=== PATIENT | male | born 1945 | race Two or more races ===

== ENCOUNTER → 2024-07-21 | Outpatient (CLI) | payer OTHER, MEDICAID, SELFPAY ==
[2024-07-21 16:13] LABS: Basophils % (Auto) 0 % (0-2.5); Eosinophils # (Auto) 0.5 Thou/mm3 (0.0-0.5); Eosinophils % (Auto) 7 % (0-10); Hematocrit 38.2 % (41.0-53.0); Hemoglobin 13.3 g/dL (13.5-16.0); Immature Granulocytes % (Auto) 0 % (0-0); Immature Granulocytes Auto 0.01 Thou/mm3 (0.00-0.00); Lymphocytes # (Auto) 2.1 Thou/mm3 (1.0-4.8); Lymphocytes % (Auto) 30 % (10-50); Mean Corpuscular HGB Conc 34.8 g/dl (31.0-37.0); Mean Corpuscular Hemoglobin 33.7 pg (25.0-35.0); Mean Corpuscular Volume 97 fL (80-100); Monocytes # (Auto) 0.8 Thou/mm3 (0.0-0.8); Monocytes % (Auto) 11 % (0-12); Neutrophils # (Auto) 3.6 Thou/mm3 (1.8-7.7); Neutrophils % (Auto) 51 % (37-80); Nucleated Red Blood Cell % 0 /100 WBC (0); Platelet Count 257 Thou/mm3 (140-440); Red Blood Count 3.95 Miln/mm3 (4.50-5.90)
[2024-07-21 16:28] LABS: Prostate Specific Antigen < 0.10 ng/mL (0-4.00)
[2024-07-21 16:37] LABS: Alanine Aminotransferase 25 U/L (10-49); Albumin, Serum 4.3 gm/dL (3.4-4.8); Albumin/Globulin Ratio 1.6 (1.2-2.2); Alkaline Phosphatase 76 U/L (46-116); Anion Gap 6 (7-16); Aspartate Amino Transferase 24 U/L (0-34); BUN/Creatinine Ratio 19 Ratio (12-20); Bilirubin,Total 0.4 mg/dL (0.3-1.2); Blood Urea Nitrogen 23 mg/dL (9-23); Carbon Dioxide 29.5 mMol/L (20.0-31.0); Chloride 103 mMol/L (98-107); Creatinine (Component) 1.2 mg/dL (0.6-1.3); Globulin 2.7 gm/dL (2.3-3.5); Glucose 111 mg/dL (74-106); Osmolality,Calculated 280 (275-295); Sodium 138 mMol/L (136-145); eGFR > 60 See Note
== END | disposition home or self-care (01) ==
LOC: SCTO 14:47
PROVIDERS: PCP Family Medicine; Referring Provider Nurse Practitioner Family; Visit Provider Nurse Practitioner Family
DX: C61 Malignant neoplasm of prostate (principal)
CPT/HCPCS: 36415; 80053; 84153; 85025

== ENCOUNTER → 2024-07-21 | Outpatient (BNVA) | payer OTHER, MEDICAID, SELFPAY | END | disposition home or self-care (01) | PROVIDERS: PCP Family Medicine; Referring Provider Family Medicine; Visit Provider Urology | DX: C61 Malignant neoplasm of prostate (principal); N32.81 Overactive bladder; Z92.3 Personal history of irradiation; I10 Essential (primary) hypertension; Z80.42 Family history of malignant neoplasm of prostate; E66.9 Obesity, unspecified; Z68.35 Body mass index [BMI] 35.0-35.9, adult; K21.9 Gastro-esophageal reflux disease without esophagitis | CPT/HCPCS: 81003; 99212; G0463 ==

== ENCOUNTER 2024-07-23 13:44 | Outpatient (RCR) | payer OTHER, MEDICAID, SELFPAY | END 2024-08-02 23:59 | disposition home or self-care (01) | LOC: SCTC 13:44 | PROVIDERS: PCP Family Medicine; Referring Provider Family Medicine; Visit Provider Internal Medicine Hematology & Oncology | DX: Z51.11 Encounter for antineoplastic chemotherapy (principal); C61 Malignant neoplasm of prostate; C79.51 Secondary malignant neoplasm of bone; Z90.79 Acquired absence of other genital organ(s) | CPT/HCPCS: 96365; 96402; J3489; J9217 ==

== ENCOUNTER → 2024-10-06 | Outpatient (CLI) | payer MEDICARE, SELFPAY ==
[2024-10-06 09:02] LABS: Basophils % (Auto) 1 % (0-2.5); Eosinophils # (Auto) 0.4 Thou/mm3 (0.0-0.5); Eosinophils % (Auto) 6 % (0-10); Hematocrit 41.8 % (41.0-53.0); Hemoglobin 14.2 g/dL (13.5-16.0); Immature Granulocytes % (Auto) 0 % (0-0); Immature Granulocytes Auto 0.01 Thou/mm3 (0.00-0.00); Lymphocytes # (Auto) 1.5 Thou/mm3 (1.0-4.8); Lymphocytes % (Auto) 24 % (10-50); Mean Corpuscular Hemoglobin 33.6 pg (25.0-35.0); Mean Corpuscular Volume 99 fL (80-100); Monocytes # (Auto) 0.7 Thou/mm3 (0.0-0.8); Monocytes % (Auto) 11 % (0-12); Neutrophils # (Auto) 3.6 Thou/mm3 (1.8-7.7); Neutrophils % (Auto) 58 % (37-80); Nucleated Red Blood Cell % 0 /100 WBC (0); Platelet Count 282 Thou/mm3 (140-440); RDW Standard Deviation 45.8 fL (35.1-43.9); Red Blood Count 4.23 Miln/mm3 (4.50-5.90); White Blood Count 6.3 Thou/mm3 (3.8-10.6)
[2024-10-06 09:08] LABS: Alanine Aminotransferase 21 U/L (10-49); Albumin, Serum 4.1 gm/dL (3.4-4.8); Albumin/Globulin Ratio 1.4 (1.2-2.2); Alkaline Phosphatase 76 U/L (46-116); Anion Gap 9 (7-16); Aspartate Amino Transferase 22 U/L (0-34); BUN/Creatinine Ratio 24 Ratio (12-20); Bilirubin,Total 0.5 mg/dL (0.3-1.2); Blood Urea Nitrogen 26 mg/dL (9-23); Calcium 9.5 mg/dL (8.3-10.6); Calcium (Corrected) 9.5 mg/dL (8.5-10.1); Carbon Dioxide 29.5 mMol/L (20.0-31.0); Chloride 102 mMol/L (98-107); Creatinine (Component) 1.1 mg/dL (0.6-1.3); Globulin 2.9 gm/dL (2.3-3.5); Glucose 109 mg/dL (74-106); Osmolality,Calculated 285 (275-295); Potassium 4.8 mMol/L (3.4-5.1); Sodium 140 mMol/L (136-145); eGFR > 60 See Note
== END | disposition home or self-care (01) ==
LOC: SCTO 07:07
PROVIDERS: PCP Family Medicine; Referring Provider Nurse Practitioner Family; Visit Provider Nurse Practitioner Family
DX: C61 Malignant neoplasm of prostate (principal)
CPT/HCPCS: 36415; 80053; 85025

== ENCOUNTER 2024-10-09 08:45 | Outpatient (RCR) | payer MEDICARE, SELFPAY | END 2024-10-31 23:59 | disposition home or self-care (01) | LOC: SCTC 08:45 | PROVIDERS: PCP Family Medicine; Referring Provider Family Medicine; Visit Provider Internal Medicine Hematology & Oncology | DX: Z51.11 Encounter for antineoplastic chemotherapy (principal); C61 Malignant neoplasm of prostate; C79.51 Secondary malignant neoplasm of bone; Z19.1 Hormone sensitive malignancy status; Z79.818 Long term (current) use of other agents affecting estrogen receptors and estrogen levels; Z90.79 Acquired absence of other genital organ(s) | CPT/HCPCS: 96402; 99212; J9217; G0463 ==

== ENCOUNTER → 2024-11-03 | Outpatient (CLI) | payer MEDICARE, MEDICAID, SELFPAY ==
[2024-11-03 08:40] LABS: Basophils % (Auto) 1 % (0-2.5); Eosinophils # (Auto) 0.4 Thou/mm3 (0.0-0.5); Eosinophils % (Auto) 6 % (0-10); Hematocrit 40.7 % (41.0-53.0); Immature Granulocytes % (Auto) 0 % (0-0); Immature Granulocytes Auto 0.02 Thou/mm3 (0.00-0.00); Lymphocytes # (Auto) 1.3 Thou/mm3 (1.0-4.8); Lymphocytes % (Auto) 21 % (10-50); Mean Corpuscular HGB Conc 34.4 g/dl (31.0-37.0); Mean Corpuscular Hemoglobin 33.4 pg (25.0-35.0); Mean Corpuscular Volume 97 fL (80-100); Monocytes # (Auto) 0.6 Thou/mm3 (0.0-0.8); Monocytes % (Auto) 10 % (0-12); Neutrophils # (Auto) 3.9 Thou/mm3 (1.8-7.7); Neutrophils % (Auto) 63 % (37-80); Nucleated Red Blood Cell % 0 /100 WBC (0); Platelet Count 262 Thou/mm3 (140-440); Red Blood Count 4.19 Miln/mm3 (4.50-5.90); White Blood Count 6.2 Thou/mm3 (3.8-10.6)
[2024-11-03 08:52] LABS: Prostate Specific Antigen < 0.10 ng/mL (0-4.00)
[2024-11-03 09:25] LABS: Alanine Aminotransferase 21 U/L (10-49); Albumin, Serum 4.6 gm/dL (3.4-4.8); Albumin/Globulin Ratio 1.8 (1.2-2.2); Alkaline Phosphatase 79 U/L (46-116); Anion Gap 9 (7-16); Aspartate Amino Transferase 25 U/L (0-34); BUN/Creatinine Ratio 20 Ratio (12-20); Bilirubin,Total 0.5 mg/dL (0.3-1.2); Blood Urea Nitrogen 18 mg/dL (9-23); Calcium 10.1 mg/dL (8.3-10.6); Calcium (Corrected) 10.1 mg/dL (8.5-10.1); Carbon Dioxide 29.3 mMol/L (20.0-31.0); Chloride 104 mMol/L (98-107); Creatinine (Component) 0.9 mg/dL (0.6-1.3); Globulin 2.6 gm/dL (2.3-3.5); Glucose 105 mg/dL (74-106); Osmolality,Calculated 285 (275-295); Potassium 4.5 mMol/L (3.4-5.1); Sodium 142 mMol/L (136-145); Total Protein 7.2 gm/dL (5.7-8.2); eGFR > 60 See Note
== END | disposition home or self-care (01) ==
LOC: COPL 07:28
PROVIDERS: PCP Family Medicine; Referring Provider Nurse Practitioner Family; Visit Provider Nurse Practitioner Family
DX: C61 Malignant neoplasm of prostate (principal)
CPT/HCPCS: 36415; 80053; 84153; 85025

== ENCOUNTER 2024-11-06 13:27 | Outpatient (RCR) | payer MEDICARE, MEDICAID, SELFPAY | END 2024-12-01 23:59 | disposition home or self-care (01) | LOC: SCTC 13:27 | PROVIDERS: PCP Family Medicine; Referring Provider Family Medicine; Visit Provider Internal Medicine Hematology & Oncology | DX: Z51.11 Encounter for antineoplastic chemotherapy (principal); C61 Malignant neoplasm of prostate; C79.51 Secondary malignant neoplasm of bone; Z19.1 Hormone sensitive malignancy status; Z90.79 Acquired absence of other genital organ(s); Z92.3 Personal history of irradiation; Z79.818 Long term (current) use of other agents affecting estrogen receptors and estrogen levels | CPT/HCPCS: 96365; 96367; 96402; J3489; J9217 ==

== ENCOUNTER → 2024-12-04 | Outpatient (CLI) | payer MEDICARE, MEDICAID, SELFPAY ==
[2024-12-04 11:49] LABS: Basophils % (Auto) 1 % (0-2.5); Eosinophils # (Auto) 0.3 Thou/mm3 (0.0-0.5); Eosinophils % (Auto) 5 % (0-10); Hematocrit 38.3 % (41.0-53.0); Hemoglobin 13.4 g/dL (13.5-16.0); Immature Granulocytes % (Auto) 0 % (0-0); Immature Granulocytes Auto 0.01 Thou/mm3 (0.00-0.00); Lymphocytes # (Auto) 1.3 Thou/mm3 (1.0-4.8); Lymphocytes % (Auto) 24 % (10-50); Mean Corpuscular Hemoglobin 33.8 pg (25.0-35.0); Mean Corpuscular Volume 97 fL (80-100); Monocytes # (Auto) 0.7 Thou/mm3 (0.0-0.8); Monocytes % (Auto) 12 % (0-12); Neutrophils # (Auto) 3.2 Thou/mm3 (1.8-7.7); Neutrophils % (Auto) 58 % (37-80); Nucleated Red Blood Cell % 0 /100 WBC (0); Platelet Count 258 Thou/mm3 (140-440); RDW Standard Deviation 47.2 fL (35.1-43.9); Red Blood Count 3.97 Miln/mm3 (4.50-5.90); White Blood Count 5.5 Thou/mm3 (3.8-10.6)
[2024-12-04 12:00] LABS: Prostate Specific Antigen < 0.10 ng/mL (0-4.00)
[2024-12-04 12:09] LABS: Alanine Aminotransferase 19 U/L (10-49); Albumin, Serum 4.1 gm/dL (3.4-4.8); Albumin/Globulin Ratio 1.5 (1.2-2.2); Alkaline Phosphatase 79 U/L (46-116); Anion Gap 10 (7-16); Aspartate Amino Transferase 24 U/L (0-34); BUN/Creatinine Ratio 20 Ratio (12-20); Bilirubin,Total 0.4 mg/dL (0.3-1.2); Blood Urea Nitrogen 20 mg/dL (9-23); Calcium 9.8 mg/dL (8.3-10.6); Calcium (Corrected) 9.8 mg/dL (8.5-10.1); Carbon Dioxide 29.5 mMol/L (20.0-31.0); Chloride 103 mMol/L (98-107); Globulin 2.7 gm/dL (2.3-3.5); Glucose 117 mg/dL (74-106); Osmolality,Calculated 286 (275-295); Potassium 4.2 mMol/L (3.4-5.1); Sodium 142 mMol/L (136-145); Total Protein 6.8 gm/dL (5.7-8.2); eGFR > 60 See Note
== END | disposition home or self-care (01) ==
LOC: SCTO 09:57
PROVIDERS: PCP Family Medicine; Referring Provider Nurse Practitioner Family; Visit Provider Nurse Practitioner Family
DX: C61 Malignant neoplasm of prostate (principal)
CPT/HCPCS: 36415; 80053; 84153; 85025

== ENCOUNTER → 2024-12-05 | Outpatient (BNVA) | payer OTHER, MEDICAID, SELFPAY | END | disposition home or self-care (01) | PROVIDERS: PCP Family Medicine; Referring Provider Family Medicine; Visit Provider Urology | DX: C61 Malignant neoplasm of prostate (principal); N32.81 Overactive bladder; I10 Essential (primary) hypertension; Z80.42 Family history of malignant neoplasm of prostate; E66.9 Obesity, unspecified; Z68.35 Body mass index [BMI] 35.0-35.9, adult; Z92.3 Personal history of irradiation | CPT/HCPCS: 81003; 99212; G0463 ==

== ENCOUNTER 2024-12-08 08:43 | Outpatient (RCR) | payer MEDICARE, MEDICAID, SELFPAY | END 2024-12-31 23:59 | disposition home or self-care (01) | LOC: SCTC 08:43 | PROVIDERS: PCP Family Medicine; Referring Provider Family Medicine; Visit Provider Internal Medicine Hematology & Oncology | DX: Z51.11 Encounter for antineoplastic chemotherapy (principal); C61 Malignant neoplasm of prostate; C79.51 Secondary malignant neoplasm of bone; Z19.1 Hormone sensitive malignancy status; Z90.79 Acquired absence of other genital organ(s); Z79.818 Long term (current) use of other agents affecting estrogen receptors and estrogen levels | CPT/HCPCS: 96372; 96402; J9217 ==

== ENCOUNTER → 2024-12-23 | Outpatient (CLI) | payer MEDICARE, MEDICAID, SELFPAY ==
[2024-12-23 14:00] LABS: Anion Gap 7 (7-16); BUN/Creatinine Ratio 18 Ratio (12-20); Blood Urea Nitrogen 25 mg/dL (9-23); Calcium 9.4 mg/dL (8.3-10.6); Carbon Dioxide 28.3 mMol/L (20.0-31.0); Chloride 110 mMol/L (98-107); Creatinine (Component) 1.4 mg/dL (0.6-1.3); Glucose 72 mg/dL (74-106); Osmolality,Calculated 292 (275-295); Sodium 145 mMol/L (136-145); eGFR 51 See Note
== END | disposition home or self-care (01) ==
LOC: COPL 13:05
PROVIDERS: PCP Family Medicine; Referring Provider Urology; Visit Provider Urology
DX: R31.0 Gross hematuria (principal); C61 Malignant neoplasm of prostate
CPT/HCPCS: 36415; 80048

== ENCOUNTER → 2024-12-29 | Outpatient (CLI) | payer MEDICARE, MEDICAID, SELFPAY ==
[2024-12-29 12:19] LABS: Prostate Specific Antigen < 0.00 ng/mL (0-4.00)
[2024-12-29 12:20] LABS: Collection Type, Urine Clean Catch
[2024-12-29 12:20] LABS: Alanine Aminotransferase 20 U/L (10-49); Albumin, Serum 4.2 gm/dL (3.4-4.8); Albumin/Globulin Ratio 1.4 (1.2-2.2); Alkaline Phosphatase 71 U/L (46-116); Anion Gap 7 (7-16); Aspartate Amino Transferase 25 U/L (0-34); BUN/Creatinine Ratio 19 Ratio (12-20); Bilirubin,Total 0.6 mg/dL (0.3-1.2); Blood Urea Nitrogen 19 mg/dL (9-23); Calcium 9.3 mg/dL (8.3-10.6); Calcium (Corrected) 9.3 mg/dL (8.5-10.1); Carbon Dioxide 28.4 mMol/L (20.0-31.0); Chloride 104 mMol/L (98-107); Glucose 101 mg/dL (74-106); Osmolality,Calculated 279 (275-295); Potassium 3.9 mMol/L (3.4-5.1); Sodium 139 mMol/L (136-145); Total Protein 7.2 gm/dL (5.7-8.2); eGFR > 60 See Note
[2024-12-29 12:22] LABS: Basophils % (Auto) 1 % (0-2.5); Eosinophils # (Auto) 0.2 Thou/mm3 (0.0-0.5); Eosinophils % (Auto) 4 % (0-10); Hematocrit 37.5 % (41.0-53.0); Immature Granulocytes % (Auto) 0 % (0-0); Immature Granulocytes Auto 0.01 Thou/mm3 (0.00-0.00); Lymphocytes # (Auto) 1.2 Thou/mm3 (1.0-4.8); Lymphocytes % (Auto) 21 % (10-50); Mean Corpuscular HGB Conc 34.7 g/dl (31.0-37.0); Mean Corpuscular Hemoglobin 33.9 pg (25.0-35.0); Mean Corpuscular Volume 98 fL (80-100); Monocytes # (Auto) 0.5 Thou/mm3 (0.0-0.8); Monocytes % (Auto) 8 % (0-12); Neutrophils % (Auto) 66 % (37-80); Nucleated Red Blood Cell % 0 /100 WBC (0); Platelet Count 256 Thou/mm3 (140-440); RDW Standard Deviation 49.4 fL (35.1-43.9); Red Blood Count 3.83 Miln/mm3 (4.50-5.90)
[2024-12-29 14:02] LABS: Bilirubin,Urine Negative (Negative); Blood,Urine Negative (Negative); Clarity,Urine Clear (Clear/Hazy); Color,Urine Yellow (Lt Yel-Yel); Glucose, Urine Negative (Negative); Ketones,Urine Negative (Negative); Leukocyte Esterase,Urine Negative (Negative); Nitrite,Urine Negative (Negative); Protein,Urine Trace (Neg - Trace); RBC,Urine 5 /hpf (0-3); Specific Gravity,Urine 1.032 (1.001-1.035); Squamous Epithelial Cell,Urine 1 /hpf (0-5); Urobilinogen,Urine Negative mg/dL (0.0-1.0); WBC,Urine 1 /hpf (0-5)
== END | disposition home or self-care (01) ==
PROVIDERS: PCP Family Medicine; Referring Provider Nurse Practitioner Family; Visit Provider Nurse Practitioner Family
DX: C61 Malignant neoplasm of prostate (principal)
CPT/HCPCS: 36415; 80053; 81001; 84153; 85025

== ENCOUNTER → 2025-01-01 | Outpatient (CLI) | payer MEDICARE, MEDICAID, SELFPAY ==
--- NOTE | 2025-01-01 | XR_ITS ---
Examination: CT abdomen with intravenous contrast CT pelvis with intravenous contrast 2-D coronal reconstructions 2-D sagittal reconstructions Date and time of exam:January 01, 2025. 9:14 AM Comparison March 04, 2024 INDICATIONS: Diagnosis prostate carcinoma 2017, hematuria episodes 2 months CTDI: vol (mGy) 17.5 DLP: (mGycm) 1046 Technique: Multiple axial sections of the abdomen and pelvis have been obtained. 64 slice high-resolution scanner used. 3 mm axial sections have been obtained, post intravenous injection 60 cc Isovue-370 2-D sagittal, coronal reconstructions obtained. Low dose protocols were performed. One or more of the following dose reduction techniques were used; automated exposure control, adjustment of the mA and/or KV according to patient size, use of iterative reconstruction technique. Findings: No focal liver or splenic lesions No gallstones No pancreatic or adrenal mass No renal or ureteral calculi, no hydronephrosis Abdominal aortic calcification no aneurysmal dilatation 30 mm fat-containing umbilical hernia No bladder mass or bladder calculi Significant osteopenia with advanced degenerative disc disease L2-L3 IMPRESSION: No renal or ureteral calculi, no hydronephrosis No bladder mass or bladder calculi Detail in the pelvis is limited secondary to the patient's left hip arthroplasty
== END | disposition home or self-care (01) ==
LOC: CDIM 07:00
PROVIDERS: PCP Family Medicine; Referring Provider Urology; Visit Provider Urology
DX: R31.0 Gross hematuria (principal)
CPT/HCPCS: 74177; A4649; Q9967

== ENCOUNTER 2025-01-07 08:52 | Outpatient (RCR) | payer MEDICARE, MEDICAID, SELFPAY | END 2025-01-31 23:59 | disposition home or self-care (01) | LOC: SCTC 08:52 | PROVIDERS: PCP Family Medicine; Referring Provider Family Medicine; Visit Provider Nurse Practitioner Family | DX: Z51.11 Encounter for antineoplastic chemotherapy (principal); C61 Malignant neoplasm of prostate; R31.9 Hematuria, unspecified; C79.51 Secondary malignant neoplasm of bone; Z19.1 Hormone sensitive malignancy status; Z90.79 Acquired absence of other genital organ(s); Z92.3 Personal history of irradiation; R94.4 Abnormal results of kidney function studies | CPT/HCPCS: 96402; 99212; J9217; G0463 ==

== ENCOUNTER → 2025-01-16 | Outpatient (BNVA) | payer MEDICARE, MEDICAID, SELFPAY | END | disposition home or self-care (01) | PROVIDERS: PCP Family Medicine; Referring Provider Family Medicine; Visit Provider Urology | DX: N32.89 Other specified disorders of bladder (principal); N30.41 Irradiation cystitis with hematuria; C61 Malignant neoplasm of prostate; Z92.3 Personal history of irradiation; K21.9 Gastro-esophageal reflux disease without esophagitis | CPT/HCPCS: 52214; 81003; 96372; A4217; A4649; C1894; J1580; A9270 ==

== ENCOUNTER → 2025-02-03 | Outpatient (CLI) | payer MEDICARE, MEDICAID, SELFPAY ==
[2025-02-03 08:52] LABS: Basophils % (Auto) 1 % (0-2.5); Eosinophils # (Auto) 0.3 Thou/mm3 (0.0-0.5); Eosinophils % (Auto) 7 % (0-10); Hematocrit 38.9 % (41.0-53.0); Hemoglobin 13.4 g/dL (13.5-16.0); Immature Granulocytes % (Auto) 0 % (0-0); Lymphocytes % (Auto) 22 % (10-50); Mean Corpuscular HGB Conc 34.4 g/dl (31.0-37.0); Mean Corpuscular Hemoglobin 34.8 pg (25.0-35.0); Mean Corpuscular Volume 101 fL (80-100); Monocytes # (Auto) 0.5 Thou/mm3 (0.0-0.8); Monocytes % (Auto) 10 % (0-12); Neutrophils # (Auto) 2.9 Thou/mm3 (1.8-7.7); Neutrophils % (Auto) 61 % (37-80); Nucleated Red Blood Cell % 0 /100 WBC (0); Platelet Count 240 Thou/mm3 (140-440); RDW Standard Deviation 49.2 fL (35.1-43.9); Red Blood Count 3.85 Miln/mm3 (4.50-5.90); White Blood Count 4.8 Thou/mm3 (3.8-10.6)
[2025-02-03 10:22] LABS: Prostate Specific Antigen < 0.10 ng/mL (0-4.00)
[2025-02-03 11:01] LABS: Alanine Aminotransferase 20 U/L (10-49); Albumin, Serum 4.3 gm/dL (3.4-4.8); Albumin/Globulin Ratio 1.7 (1.2-2.2); Alkaline Phosphatase 74 U/L (46-116); Anion Gap 12 (7-16); Aspartate Amino Transferase 25 U/L (0-34); BUN/Creatinine Ratio 22 Ratio (12-20); Bilirubin,Total 0.4 mg/dL (0.3-1.2); Blood Urea Nitrogen 22 mg/dL (9-23); Calcium 9.2 mg/dL (8.3-10.6); Calcium (Corrected) 9.2 mg/dL (8.5-10.1); Carbon Dioxide 27.7 mMol/L (20.0-31.0); Chloride 104 mMol/L (98-107); Globulin 2.6 gm/dL (2.3-3.5); Glucose 114 mg/dL (74-106); Osmolality,Calculated 291 (275-295); Potassium 4.7 mMol/L (3.4-5.1); Sodium 144 mMol/L (136-145); Total Protein 6.9 gm/dL (5.7-8.2); eGFR > 60 See Note
== END | disposition home or self-care (01) ==
LOC: SCTO 06:48
PROVIDERS: PCP Family Medicine; Referring Provider Nurse Practitioner Family; Visit Provider Nurse Practitioner Family
DX: C61 Malignant neoplasm of prostate (principal)
CPT/HCPCS: 36415; 80053; 84153; 85025

== ENCOUNTER → 2025-02-10 | Outpatient (CLI) | payer MEDICARE, MEDICAID, SELFPAY ==
--- NOTE | 2025-02-10 09:00 | XR_ITS ---
Examination: CT chest with intravenous contrast CT abdomen with intravenous contrast CT pelvis with intravenous contrast 2-D coronal and sagittal reconstructions Time of exam: February 10, [address] abdomen pelvis January 01, 2025, CT chest December 14, 2023, nuclear medicine bone scan November 16, 2022 INDICATIONS: Diagnosis malignant neoplasm prostate 2017, hematuria 2 months CTDI: vol (mGy) : 17.2 DLP: (mGycm): 795 Technique: Multiple axial images of the chest, abdomen and pelvis with intravenous contrast, 3.0 mm slice thickness. Images obtained post intravenous injection Isovue 370 60 cc. 2-D sagittal and coronal reconstructions. Low dose protocols were performed. One or more of the following dose reduction techniques were used; automated exposure control, adjustment of the mA and/or KV according to patient size, use of iterative reconstruction technique. Findings: No thoracic aortic aneurysm dilatation or dissection Pulmonary artery opacification is poor Heavy calcification left anterior descending coronary artery. No paratracheal tracheobronchial or bronchopulmonary adenopathy 2 mm pulmonary nodule left upper lobe image 131 No pneumonia or pulmonary edema No visualized liver or splenic lesion No gallstones No pancreatic or adrenal mass No renal or ureteral calculi, no hydronephrosis Aorta calcification no aneurysmal dilatation No pericecal inflammatory change No bowel obstruction or diverticulitis Pelvis detail is obscured by left hip bipolar hemiarthroplasty Urinary bladder is contracted with marked wall thickening of the urinary bladder up to 14 mm Prostate tissue is not depicted IMPRESSION: 2 mm pulmonary nodule left upper lobe, with this study as baseline recommend 6 month follow-up CT chest without contrast Prominent thickening of the urinary bladder wall, cystitis would be included in the differential, clinical correlation advised No renal or ureteral calculi, no solid renal mass lesion
== END | disposition home or self-care (01) ==
LOC: CCTX 08:38
PROVIDERS: PCP Family Medicine; Referring Provider Nurse Practitioner Family; Visit Provider Nurse Practitioner Family
DX: C61 Malignant neoplasm of prostate (principal); R91.1 Solitary pulmonary nodule; I25.10 Atherosclerotic heart disease of native coronary artery without angina pectoris
CPT/HCPCS: 71260; 74177; A4649; Q9967

== ENCOUNTER 2025-02-12 09:03 | Outpatient (RCR) | payer MEDICARE, MEDICAID, SELFPAY | END 2025-03-02 23:59 | disposition home or self-care (01) | LOC: SCTC 09:03 | PROVIDERS: PCP Family Medicine; Referring Provider Family Medicine; Visit Provider Internal Medicine Hematology & Oncology | DX: C61 Malignant neoplasm of prostate (principal); C79.51 Secondary malignant neoplasm of bone; Z19.1 Hormone sensitive malignancy status; Z90.79 Acquired absence of other genital organ(s); Z92.3 Personal history of irradiation; Z79.818 Long term (current) use of other agents affecting estrogen receptors and estrogen levels; N32.89 Other specified disorders of bladder; R31.9 Hematuria, unspecified; R53.83 Other fatigue; R94.4 Abnormal results of kidney function studies | CPT/HCPCS: 99212; G0463 ==

== ENCOUNTER → 2025-02-19 | Outpatient (CLI) | payer MEDICARE, MEDICAID, SELFPAY ==
[2025-02-19 09:14] LABS: Cardiac Risk Estimate 3.4 RATIO (4.0-6.7); Cholesterol 186 mg/dL (132-200); HDL Cholesterol 55 mg/dL (40-60); LDL Cholesterol,Calculated 105 mg/dL (0-130); Triglycerides 131 mg/dL (30-150)
== END | disposition home or self-care (01) ==
LOC: COPL 07:48
PROVIDERS: PCP Family Medicine; Referring Provider Family Medicine; Visit Provider Family Medicine
DX: E78.5 Hyperlipidemia, unspecified (principal)
CPT/HCPCS: 36415; 80061

== ENCOUNTER 2025-03-06 22:16 | Emergency (ER) | payer OTHER, SELFPAY ==
[2025-03-06 22:38] VITALS: BP 161/73; PULSE 70; RESP 20; TEMP 37.2; O2SAT 96
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
--- NOTE | 2025-03-06 22:47 | XR_ITS ---
Examination: Right elbow 2 views TECHNIQUE: AP lateral right elbow 2 views Date and time: March 06, 2025 11:35 PM INDICATIONS: Patient fell today with image of the elbow, elbow pain. FINDINGS: Significant elbow osteoarthritis No acute fracture No dislocation IMPRESSION: No acute fracture
--- NOTE | 2025-03-07 01:50 | PRELIM_ITS ---
CT scan of the head without intravenous contrast (axial sections with sagittal and coronal reformats) March 07, 2025 0051 hours Clinical History: Fall Reference is made to the prior report dated December 26, 2023 Findings: There is no evidence of intracranial hemorrhage, mass effect or midline shift. A prominent cisterna magna is incidentally noted. There are periventricular white matter hypodensities, compatible with chronic small vessel ischemia. There is mild volume loss. The calvarium is intact. The mastoid air cells and the visualized paranasal sinuses are clear. There is midline high parietal scalp contusion. Impression: 1. No evidence of intracranial hemorrhage, midline shift or calvarial fracture. 2. Periventricular chronic small vessel ischemia and volume loss. 3. Midline high parietal scalp contusion. Suggest clinical correlation and follow up accordingly. Report on maxillofacial CT to follow. Report Electronically Signed By: Rg Morejon 03/07/2025 1:49:54 AM [EST]
--- NOTE | 2025-03-07 01:55 | PRELIM_ITS ---
CT maxillofacial without intravenous contrast (axial sections with sagittal and coronal reformats). March 07, 2025 0051 hours Clinical History: Fall Comparison: No prior study is available for comparison. Findings: There is no evidence of acute fracture. The maxillary sinus and orbital ventura are intact. No fluid levels are seen. No evidence of intraorbital hematoma, proptosis, globe injury or radiodense foreign body. The zygomatic arches and mandible are intact. Periapical lucencies are seen involving multiple teeth. The visualized soft tissues are unremarkable. Impression: No evidence of acute maxillofacial fracture. Other findings as described above. Suggest clinical correlation and follow up accordingly. Report Electronically Signed By: Rg Morejon 03/07/2025 1:54:50 AM [EST]
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
== END 2025-03-07 02:47 | disposition home or self-care (01) ==
PROVIDERS: Emergency Provider Emergency Medicine; PCP Family Medicine
DX: S53.401A Unspecified sprain of right elbow, initial encounter (principal); S00.03XA Contusion of scalp, initial encounter; S00.81XA Abrasion of other part of head, initial encounter; S20.211A Contusion of right front wall of thorax, initial encounter; V19.3XXA Pedal cyclist (driver) (passenger) injured in unspecified nontraffic accident, initial encounter; Y93.55 Activity, bike riding
CPT/HCPCS: 70450; 70486; 71100; 73070; 99284

== ENCOUNTER → 2025-03-23 | Outpatient (CLI) | payer OTHER, SELFPAY ==
[2025-03-23 16:18] LABS: Basophils # (Auto) 0.0 Thou/mm3 (0.0-0.2); Basophils % (Auto) 0 % (0-2.5); Eosinophils # (Auto) 0.3 Thou/mm3 (0.0-0.5); Eosinophils % (Auto) 3 % (0-10); Hematocrit 37.0 % (41.0-53.0); Hemoglobin 13.1 g/dL (13.5-16.0); Immature Granulocytes Auto 0.02 Thou/mm3 (0.00-0.00); Immature Reticulocyte Fraction 11.1 % (2.3-13.4); Lymphocytes # (Auto) 1.5 Thou/mm3 (1.0-4.8); Lymphocytes % (Auto) 18 % (10-50); Mean Corpuscular HGB Conc 35.4 g/dl (31.0-37.0); Mean Corpuscular Hemoglobin 34.5 pg (25.0-35.0); Mean Corpuscular Volume 97 fL (80-100); Monocytes # (Auto) 0.7 Thou/mm3 (0.0-0.8); Monocytes % (Auto) 9 % (0-12); Neutrophils # (Auto) 5.4 Thou/mm3 (1.8-7.7); Neutrophils % (Auto) 68 % (37-80); Nucleated Red Blood Cell # 0.00 Thou/mm3 (0.00-0.00); Nucleated Red Blood Cell % 0 /100 WBC (0); Platelet Count 262 Thou/mm3 (140-440); RDW Standard Deviation 45.7 fL (35.1-43.9); Red Blood Count 3.80 Miln/mm3 (4.50-5.90); Reticulocyte % (Auto) 2.0 % (0.5-1.5); Reticulocyte Absolute Auto 74.5 Biln/L (25.0-75.0); Reticulocyte Hgb Content 37.7 pg (28.0-35.0); White Blood Count 7.9 Thou/mm3 (3.8-10.6)
[2025-03-23 16:45] LABS: Alanine Aminotransferase 16 U/L (10-49); Albumin, Serum 4.4 gm/dL (3.4-4.8); Albumin/Globulin Ratio 1.5 (1.2-2.2); Alkaline Phosphatase 85 U/L (46-116); Anion Gap 9 (7-16); Aspartate Amino Transferase 21 U/L (0-34); BUN/Creatinine Ratio 23 Ratio (12-20); Bilirubin,Total 0.4 mg/dL (0.3-1.2); Blood Urea Nitrogen 27 mg/dL (9-23); Calcium 9.7 mg/dL (8.3-10.6); Calcium (Corrected) 9.7 mg/dL (8.5-10.1); Carbon Dioxide 28.3 mMol/L (20.0-31.0); Chloride 102 mMol/L (98-107); Creatinine (Component) 1.2 mg/dL (0.6-1.3); Globulin 2.9 gm/dL (2.3-3.5); Glucose 108 mg/dL (74-106); LDH (Lactate Dehydrogenase) 181 U/L (120-246); Osmolality,Calculated 283 (275-295); Potassium 4.7 mMol/L (3.4-5.1); Sodium 139 mMol/L (136-145); Total Protein 7.3 gm/dL (5.7-8.2); eGFR > 60 See Note
[2025-03-23 16:46] LABS: Ferritin 78 ng/mL (10.5-307.3); Iron 77 mcg/dL (65-175); Percent Iron Saturation 22 % (20-55); Total Iron Binding Capacity 340 mcg/dL (250-425); Unsaturated Iron Binding 263 (225-295)
[2025-03-23 16:47] LABS: Folate 15.04 ng/mL (>5.38)
[2025-03-30 06:52] LABS: Haptoglobin* 153 mg/dL (43-212)
== END | disposition home or self-care (01) ==
LOC: COPL 15:49 → SCTO 15:53
PROVIDERS: PCP Family Medicine; Referring Provider Nurse Practitioner Family; Visit Provider Nurse Practitioner Family
DX: C61 Malignant neoplasm of prostate (principal)
CPT/HCPCS: 36415; 80053; 82728; 82746; 83010; 83540; 83550; 83615; 85025; 85046

== ENCOUNTER 2025-03-25 13:00 | Outpatient (RCR) | payer MEDICARE, SELFPAY | END 2025-04-02 23:59 | disposition home or self-care (01) | LOC: SCTC 13:00 | PROVIDERS: PCP Family Medicine; Referring Provider Family Medicine; Visit Provider Internal Medicine Hematology & Oncology | DX: Z51.11 Encounter for antineoplastic chemotherapy (principal); C61 Malignant neoplasm of prostate; C79.51 Secondary malignant neoplasm of bone; Z19.1 Hormone sensitive malignancy status; Z92.3 Personal history of irradiation; Z90.79 Acquired absence of other genital organ(s); N32.89 Other specified disorders of bladder; R31.9 Hematuria, unspecified; R53.0 Neoplastic (malignant) related fatigue; R74.8 Abnormal levels of other serum enzymes; E66.9 Obesity, unspecified; Z68.34 Body mass index [BMI] 34.0-34.9, adult | CPT/HCPCS: 96365; 96402; J3489; J9217 ==

== ENCOUNTER → 2025-04-23 | Outpatient (CLI) | payer MEDICARE, SELFPAY ==
[2025-04-23 14:52] LABS: Basophils # (Auto) 0.0 Thou/mm3 (0.0-0.2); Basophils % (Auto) 0 % (0-2.5); Eosinophils # (Auto) 0.2 Thou/mm3 (0.0-0.5); Eosinophils % (Auto) 4 % (0-10); Hematocrit 38.3 % (41.0-53.0); Hemoglobin 13.0 g/dL (13.5-16.0); Immature Granulocytes Auto 0.01 Thou/mm3 (0.00-0.00); Immature Reticulocyte Fraction 14.2 % (2.3-13.4); Lymphocytes # (Auto) 1.3 Thou/mm3 (1.0-4.8); Lymphocytes % (Auto) 20 % (10-50); Mean Corpuscular HGB Conc 33.9 g/dl (31.0-37.0); Mean Corpuscular Hemoglobin 33.9 pg (25.0-35.0); Mean Corpuscular Volume 100 fL (80-100); Monocytes # (Auto) 0.6 Thou/mm3 (0.0-0.8); Monocytes % (Auto) 10 % (0-12); Neutrophils # (Auto) 4.2 Thou/mm3 (1.8-7.7); Neutrophils % (Auto) 66 % (37-80); Nucleated Red Blood Cell # 0.00 Thou/mm3 (0.00-0.00); Nucleated Red Blood Cell % 0 /100 WBC (0); Platelet Count 276 Thou/mm3 (140-440); RDW Standard Deviation 48.9 fL (35.1-43.9); Red Blood Count 3.83 Miln/mm3 (4.50-5.90); Reticulocyte % (Auto) 2.4 % (0.5-1.5); Reticulocyte Absolute Auto 91.2 Biln/L (25.0-75.0); Reticulocyte Hgb Content 39.6 pg (28.0-35.0); White Blood Count 6.4 Thou/mm3 (3.8-10.6)
[2025-04-23 15:10] LABS: Alanine Aminotransferase 17 U/L (10-49); Albumin, Serum 4.3 gm/dL (3.4-4.8); Albumin/Globulin Ratio 1.7 (1.2-2.2); Alkaline Phosphatase 82 U/L (46-116); Anion Gap 9 (7-16); Aspartate Amino Transferase 22 U/L (0-34); BUN/Creatinine Ratio 20 Ratio (12-20); Bilirubin,Total 0.4 mg/dL (0.3-1.2); Blood Urea Nitrogen 26 mg/dL (9-23); Calcium 10.4 mg/dL (8.3-10.6); Calcium (Corrected) 10.4 mg/dL (8.5-10.1); Carbon Dioxide 30.7 mMol/L (20.0-31.0); Chloride 104 mMol/L (98-107); Creatinine (Component) 1.3 mg/dL (0.6-1.3); Globulin 2.5 gm/dL (2.3-3.5); Glucose 110 mg/dL (74-106); LDH (Lactate Dehydrogenase) 200 U/L (120-246); Osmolality,Calculated 292 (275-295); Potassium 4.4 mMol/L (3.4-5.1); Sodium 144 mMol/L (136-145); Total Protein 6.8 gm/dL (5.7-8.2); eGFR 56 See Note
[2025-04-23 15:13] LABS: Folate 20.35 ng/mL (>5.38); Vitamin B12 769 pg/mL (211-911)
[2025-04-23 15:14] LABS: Ferritin 63 ng/mL (10.5-307.3); Iron 58 mcg/dL (65-175); Percent Iron Saturation 16 % (20-55); Total Iron Binding Capacity 345 mcg/dL (250-425); Unsaturated Iron Binding 287 (225-295)
[2025-04-30 06:38] LABS: Haptoglobin* 145 mg/dL (43-212)
== END | disposition home or self-care (01) ==
LOC: SCTO 13:48
PROVIDERS: PCP Family Medicine; Referring Provider Nurse Practitioner Family; Visit Provider Nurse Practitioner Family
DX: C61 Malignant neoplasm of prostate (principal)
CPT/HCPCS: 36415; 80053; 82607; 82728; 82746; 83010; 83540; 83550; 83615; 85025; 85046

== ENCOUNTER 2025-04-27 12:57 | Outpatient (RCR) | payer MEDICARE, SELFPAY | END 2025-05-03 23:59 | disposition home or self-care (01) | LOC: SCTC 12:57 | PROVIDERS: PCP Family Medicine; Referring Provider Family Medicine; Visit Provider Internal Medicine Hematology & Oncology | DX: Z51.11 Encounter for antineoplastic chemotherapy (principal); C61 Malignant neoplasm of prostate; C79.51 Secondary malignant neoplasm of bone; Z19.1 Hormone sensitive malignancy status; Z90.79 Acquired absence of other genital organ(s); Z92.3 Personal history of irradiation | CPT/HCPCS: 96402; J9217 ==

== ENCOUNTER → 2025-05-25 | Outpatient (CLI) | payer MEDICARE, SELFPAY ==
[2025-05-25 16:09] LABS: Basophils # (Auto) 0.0 Thou/mm3 (0.0-0.2); Basophils % (Auto) 1 % (0-2.5); Eosinophils # (Auto) 0.2 Thou/mm3 (0.0-0.5); Eosinophils % (Auto) 3 % (0-10); Hematocrit 38.3 % (41.0-53.0); Hemoglobin 13.1 g/dL (13.5-16.0); Immature Granulocytes Auto 0.02 Thou/mm3 (0.00-0.00); Immature Reticulocyte Fraction 17.4 % (2.3-13.4); Lymphocytes # (Auto) 1.6 Thou/mm3 (1.0-4.8); Lymphocytes % (Auto) 22 % (10-50); Mean Corpuscular HGB Conc 34.2 g/dl (31.0-37.0); Mean Corpuscular Hemoglobin 34.4 pg (25.0-35.0); Mean Corpuscular Volume 101 fL (80-100); Monocytes # (Auto) 0.7 Thou/mm3 (0.0-0.8); Monocytes % (Auto) 9 % (0-12); Neutrophils # (Auto) 4.7 Thou/mm3 (1.8-7.7); Neutrophils % (Auto) 65 % (37-80); Nucleated Red Blood Cell # 0.00 Thou/mm3 (0.00-0.00); Nucleated Red Blood Cell % 0 /100 WBC (0); Platelet Count 246 Thou/mm3 (140-440); RDW Standard Deviation 49.8 fL (35.1-43.9); Red Blood Count 3.81 Miln/mm3 (4.50-5.90); Reticulocyte % (Auto) 2.1 % (0.5-1.5); Reticulocyte Absolute Auto 81.5 Biln/L (25.0-75.0); Reticulocyte Hgb Content 37.4 pg (28.0-35.0); White Blood Count 7.2 Thou/mm3 (3.8-10.6)
[2025-05-25 16:27] LABS: Alanine Aminotransferase 22 U/L (10-49); Albumin, Serum 4.0 gm/dL (3.4-4.8); Albumin/Globulin Ratio 1.5 (1.2-2.2); Alkaline Phosphatase 70 U/L (46-116); Anion Gap 8 (7-16); Aspartate Amino Transferase 20 U/L (0-34); BUN/Creatinine Ratio 17 Ratio (12-20); Bilirubin,Total 0.4 mg/dL (0.3-1.2); Blood Urea Nitrogen 19 mg/dL (9-23); Calcium 9.6 mg/dL (8.3-10.6); Calcium (Corrected) 9.6 mg/dL (8.5-10.1); Carbon Dioxide 30.5 mMol/L (20.0-31.0); Chloride 108 mMol/L (98-107); Creatinine (Component) 1.1 mg/dL (0.6-1.3); Globulin 2.6 gm/dL (2.3-3.5); Glucose 106 mg/dL (74-106); LDH (Lactate Dehydrogenase) 205 U/L (120-246); Osmolality,Calculated 292 (275-295); Potassium 4.2 mMol/L (3.4-5.1); Sodium 146 mMol/L (136-145); Total Protein 6.6 gm/dL (5.7-8.2); eGFR > 60 See Note
[2025-05-25 16:30] LABS: Ferritin 68 ng/mL (10.5-307.3); Iron 99 mcg/dL (65-175); Percent Iron Saturation 30 % (20-55); Total Iron Binding Capacity 329 mcg/dL (250-425); Unsaturated Iron Binding 230 (225-295)
[2025-05-25 16:31] LABS: Folate > 24.00 ng/mL (>5.38)
[2025-06-01 07:20] LABS: Haptoglobin* 147 mg/dL (43-212)
== END | disposition home or self-care (01) ==
LOC: SCTO 14:36
PROVIDERS: PCP Family Medicine; Referring Provider Nurse Practitioner Family; Visit Provider Nurse Practitioner Family
DX: C61 Malignant neoplasm of prostate (principal)
CPT/HCPCS: 36415; 80053; 82728; 82746; 83010; 83540; 83550; 83615; 85025; 85046

== ENCOUNTER 2025-05-27 13:11 | Outpatient (RCR) | payer MEDICARE, MEDICAID, SELFPAY | END 2025-06-02 23:59 | disposition home or self-care (01) | LOC: SCTC 13:11 | PROVIDERS: PCP Family Medicine; Referring Provider Family Medicine; Visit Provider Internal Medicine Hematology & Oncology | DX: Z51.11 Encounter for antineoplastic chemotherapy (principal); C61 Malignant neoplasm of prostate; C79.51 Secondary malignant neoplasm of bone; Z19.1 Hormone sensitive malignancy status; Z90.79 Acquired absence of other genital organ(s); Z92.3 Personal history of irradiation; R31.9 Hematuria, unspecified; N32.89 Other specified disorders of bladder; R53.83 Other fatigue | CPT/HCPCS: 96402; J9217 ==

== ENCOUNTER → 2025-06-18 | Outpatient (CLI) | payer MEDICARE, MEDICAID, SELFPAY ==
[2025-06-18 11:39] LABS: Prostate Specific Antigen < 0.10 ng/mL (0-4.00)
== END | disposition home or self-care (01) ==
LOC: COPL 10:34
PROVIDERS: PCP Family Medicine; Referring Provider Urology; Visit Provider Urology
DX: C61 Malignant neoplasm of prostate (principal)
CPT/HCPCS: 36415; 84153

== ENCOUNTER → 2025-06-19 | Outpatient (BNVA) | payer MEDICARE, MEDICAID, SELFPAY | END | disposition home or self-care (01) | PROVIDERS: PCP Family Medicine; Referring Provider Family Medicine; Visit Provider Urology | DX: C61 Malignant neoplasm of prostate (principal); Z92.3 Personal history of irradiation; R32 Unspecified urinary incontinence; Z90.79 Acquired absence of other genital organ(s); Z80.42 Family history of malignant neoplasm of prostate | CPT/HCPCS: 81003; 99212; 99213; G0463 ==

== ENCOUNTER → 2025-06-22 | Outpatient (CLI) | payer MEDICARE, MEDICAID, SELFPAY ==
[2025-06-22 14:32] LABS: Basophils # (Auto) 0.0 Thou/mm3 (0.0-0.2); Basophils % (Auto) 0 % (0-2.5); Eosinophils # (Auto) 0.2 Thou/mm3 (0.0-0.5); Eosinophils % (Auto) 3 % (0-10); Hematocrit 39.6 % (41.0-53.0); Hemoglobin 13.6 g/dL (13.5-16.0); Immature Granulocytes Auto 0.03 Thou/mm3 (0.00-0.00); Immature Reticulocyte Fraction 17.5 % (2.3-13.4); Lymphocytes # (Auto) 1.4 Thou/mm3 (1.0-4.8); Lymphocytes % (Auto) 20 % (10-50); Mean Corpuscular HGB Conc 34.3 g/dl (31.0-37.0); Mean Corpuscular Hemoglobin 34.3 pg (25.0-35.0); Mean Corpuscular Volume 100 fL (80-100); Monocytes # (Auto) 0.7 Thou/mm3 (0.0-0.8); Monocytes % (Auto) 9 % (0-12); Neutrophils # (Auto) 4.7 Thou/mm3 (1.8-7.7); Neutrophils % (Auto) 67 % (37-80); Nucleated Red Blood Cell # 0.00 Thou/mm3 (0.00-0.00); Nucleated Red Blood Cell % 0 /100 WBC (0); Platelet Count 282 Thou/mm3 (140-440); RDW Standard Deviation 49.1 fL (35.1-43.9); Red Blood Count 3.97 Miln/mm3 (4.50-5.90); Reticulocyte % (Auto) 2.3 % (0.5-1.5); Reticulocyte Absolute Auto 90.5 Biln/L (25.0-75.0); Reticulocyte Hgb Content 40.4 pg (28.0-35.0); White Blood Count 7.0 Thou/mm3 (3.8-10.6)
[2025-06-22 14:49] LABS: Alanine Aminotransferase 17 U/L (10-49); Albumin, Serum 4.2 gm/dL (3.4-4.8); Albumin/Globulin Ratio 1.6 (1.2-2.2); Alkaline Phosphatase 86 U/L (46-116); Anion Gap 9 (7-16); Aspartate Amino Transferase 24 U/L (0-34); BUN/Creatinine Ratio 11 Ratio (12-20); Bilirubin,Total 0.6 mg/dL (0.3-1.2); Blood Urea Nitrogen 18 mg/dL (9-23); Calcium 9.8 mg/dL (8.3-10.6); Calcium (Corrected) 9.8 mg/dL (8.5-10.1); Carbon Dioxide 32.6 mMol/L (20.0-31.0); Chloride 99 mMol/L (98-107); Creatinine (Component) 1.7 mg/dL (0.6-1.3); Globulin 2.7 gm/dL (2.3-3.5); Glucose 124 mg/dL (74-106); LDH (Lactate Dehydrogenase) 188 U/L (120-246); Osmolality,Calculated 284 (275-295); Potassium 4.3 mMol/L (3.4-5.1); Sodium 141 mMol/L (136-145); Total Protein 6.9 gm/dL (5.7-8.2); eGFR 41 See Note
[2025-06-22 14:52] LABS: Ferritin 68 ng/mL (10.5-307.3); Iron 108 mcg/dL (65-175); Percent Iron Saturation 31 % (20-55); Total Iron Binding Capacity 345 mcg/dL (250-425); Unsaturated Iron Binding 237 (225-295)
[2025-06-22 14:53] LABS: Folate 22.31 ng/mL (>5.38)
[2025-07-02 06:28] LABS: Haptoglobin* 142 mg/dL (43-212)
== END | disposition home or self-care (01) ==
LOC: SCTO 13:58
PROVIDERS: PCP Family Medicine; Referring Provider Nurse Practitioner Family; Visit Provider Nurse Practitioner Family
DX: C61 Malignant neoplasm of prostate (principal)
CPT/HCPCS: 36415; 80053; 82728; 82746; 83010; 83540; 83550; 83615; 85025; 85046

== ENCOUNTER 2025-06-25 12:53 | Outpatient (RCR) | payer MEDICARE, MEDICAID, SELFPAY | END 2025-07-03 23:59 | disposition home or self-care (01) | LOC: SCTC 12:53 | PROVIDERS: PCP Family Medicine; Referring Provider Family Medicine; Visit Provider Nurse Practitioner Family | DX: Z51.11 Encounter for antineoplastic chemotherapy (principal); C61 Malignant neoplasm of prostate; C79.51 Secondary malignant neoplasm of bone; Z19.1 Hormone sensitive malignancy status; Z90.79 Acquired absence of other genital organ(s); Z92.3 Personal history of irradiation; N32.89 Other specified disorders of bladder; R31.9 Hematuria, unspecified; R53.83 Other fatigue; R94.4 Abnormal results of kidney function studies; R73.03 Prediabetes; E66.9 Obesity, unspecified; Z68.34 Body mass index [BMI] 34.0-34.9, adult | CPT/HCPCS: 96361; 96365; 96402; 99212; J3489; J9217; G0463 ==

== ENCOUNTER → 2025-07-22 | Outpatient (CLI) | payer MEDICARE, MEDICAID, SELFPAY ==
[2025-07-22 14:21] LABS: Basophils # (Auto) 0.1 Thou/mm3 (0.0-0.2); Basophils % (Auto) 1 % (0-2.5); Eosinophils # (Auto) 0.3 Thou/mm3 (0.0-0.5); Eosinophils % (Auto) 4 % (0-10); Hematocrit 36.7 % (41.0-53.0); Hemoglobin 12.9 g/dL (13.5-16.0); Immature Granulocytes Auto 0.02 Thou/mm3 (0.00-0.00); Immature Reticulocyte Fraction 11.9 % (2.3-13.4); Lymphocytes # (Auto) 1.8 Thou/mm3 (1.0-4.8); Lymphocytes % (Auto) 24 % (10-50); Mean Corpuscular HGB Conc 35.1 g/dl (31.0-37.0); Mean Corpuscular Hemoglobin 35.1 pg (25.0-35.0); Mean Corpuscular Volume 100 fL (80-100); Monocytes # (Auto) 0.6 Thou/mm3 (0.0-0.8); Monocytes % (Auto) 8 % (0-12); Neutrophils # (Auto) 4.8 Thou/mm3 (1.8-7.7); Neutrophils % (Auto) 63 % (37-80); Nucleated Red Blood Cell # 0.00 Thou/mm3 (0.00-0.00); Nucleated Red Blood Cell % 0 /100 WBC (0); Platelet Count 241 Thou/mm3 (140-440); RDW Standard Deviation 47.3 fL (35.1-43.9); Red Blood Count 3.68 Miln/mm3 (4.50-5.90); Reticulocyte % (Auto) 2.1 % (0.5-1.5); Reticulocyte Absolute Auto 78.4 Biln/L (25.0-75.0); Reticulocyte Hgb Content 37.6 pg (28.0-35.0); White Blood Count 7.6 Thou/mm3 (3.8-10.6)
[2025-07-22 14:30] LABS: Alanine Aminotransferase 15 U/L (10-49); Albumin, Serum 4.4 gm/dL (3.4-4.8); Albumin/Globulin Ratio 1.8 (1.2-2.2); Alkaline Phosphatase 70 U/L (46-116); Anion Gap 10 (7-16); Aspartate Amino Transferase 23 U/L (0-34); BUN/Creatinine Ratio 15 Ratio (12-20); Bilirubin,Total 0.4 mg/dL (0.3-1.2); Blood Urea Nitrogen 19 mg/dL (9-23); Calcium 9.3 mg/dL (8.3-10.6); Calcium (Corrected) 9.3 mg/dL (8.5-10.1); Carbon Dioxide 31.1 mMol/L (20.0-31.0); Chloride 100 mMol/L (98-107); Creatinine (Component) 1.3 mg/dL (0.6-1.3); Folate 16.03 ng/mL (>5.38); Globulin 2.4 gm/dL (2.3-3.5); Glucose 114 mg/dL (74-106); Osmolality,Calculated 284 (275-295); Potassium 4.2 mMol/L (3.4-5.1); Sodium 141 mMol/L (136-145); Total Protein 6.8 gm/dL (5.7-8.2); eGFR 56 See Note
[2025-07-22 14:31] LABS: Ferritin 75 ng/mL (10.5-307.3); Iron 112 mcg/dL (65-175); Percent Iron Saturation 34 % (20-55); Total Iron Binding Capacity 324 mcg/dL (250-425); Unsaturated Iron Binding 212 (225-295)
== END | disposition home or self-care (01) ==
LOC: SCTO 13:01
PROVIDERS: PCP Family Medicine; Referring Provider Nurse Practitioner Family; Visit Provider Nurse Practitioner Family
DX: C61 Malignant neoplasm of prostate (principal)
CPT/HCPCS: 36415; 80053; 82728; 82746; 83540; 83550; 85025; 85046

== ENCOUNTER 2025-07-28 13:43 | Outpatient (RCR) | payer MEDICARE, MEDICAID, SELFPAY | END 2025-08-02 23:59 | disposition home or self-care (01) | LOC: SCTC 13:43 | PROVIDERS: PCP Family Medicine; Referring Provider Family Medicine; Visit Provider Nurse Practitioner Family | DX: Z51.11 Encounter for antineoplastic chemotherapy (principal); C61 Malignant neoplasm of prostate | CPT/HCPCS: 96402; 99212; J9217; G0463 ==